=== PATIENT | male | born 1950 | race Asian ===

== ENCOUNTER → 2018-03-22 | Outpatient (CLI) | payer MEDICAID, OTHER ==
[~2018-03-22] MED LIST: IOPAMIDOL (ISOVUE 370) 100 ML BTL IV ONE
== END ==
LOC: CIMAGING 08:17
PROVIDERS: ATTEND Physician Assistant Medical
DX: I77.810 Thoracic aortic ectasia (principal); J98.11 Atelectasis
CPT/HCPCS: 71275; Q9967; 82565-PO